=== PATIENT | male | born 1955 | race Caucasian/White ===

== ENCOUNTER 2024-04-01 20:44 | Emergency (ER) | payer MEDICARE, OTHER, SELFPAY ==
[2024-04-01 20:53] VITALS: BP 158/80; PULSE 77; RESP 18; TEMP 36.1; O2SAT 99; BMI 27.2
--- NOTE | 2024-04-01 21:16 | CRLHL7_ITS ---
For Patients: As a result of the Cures Act, medical imaging exams and procedure reports are released immediately into your electronic medical record. You may view this report before your referring provider. If you have questions, please contact your health care provider. INDICATION: Right lower quadrant abdominal pelvic pain. History appendectomy TECHNIQUE: CT Abdomen and pelvis without i.v. contrast. Coronal and sagittal reformats were obtained. COMPARISON: None FINDINGS: Lower chest: Unremarkable. Liver: Unremarkable. Spleen: Unremarkable. Pancreas: Unremarkable. Gallbladder: Unremarkable. Kidney: There is a 1 mm stone at the right ureterovesicular junction (UVJ) causing mild right hydroureter and perinephric edema. Adrenal: Unremarkable. Bowel: The sigmoid colon is collapsed and difficult to evaluate but there is severe diverticulosis of the sigmoid colon is present with suspected wall thickening. Previous appendectomy noted with no significant appendiceal stump identified. Vascular: Unremarkable. Lymph: Unremarkable. Peritoneum: Unremarkable. No pneumoperitoneum is seen. No significant ascites is noted. Pelvis: Unremarkable. Soft tissue: Unremarkable. Bone: Unremarkable for age. IMPRESSIONS: 1. There is a 1 mm stone at the right ureterovesicular junction (UVJ) causing mild right hydroureter and perinephric edema. 2. The sigmoid colon is collapsed and difficult to evaluate but there is severe diverticulosis of the sigmoid colon is present with suspected wall thickening. Findings may be due to acute diverticulitis and correlation with any recent colonoscopy or barium enema results are recommended to exclude any neoplastic etiology. Dictated by Steve Joyner MD @ 04/01/2024 10:29:44 PM Please note that all CT scans at this facility use dose modulation, iterative reconstruction, and/or weight-based dosing when appropriate to reduce radiation dose to as low as reasonably achievable. Dictated by: Steve Joyner MD @ 04/01/2024 22:29:48 (Electronically Signed)
--- NOTE | 2024-04-01 21:17 | ED.ABDPAIN ---
HPI - Abdominal Pain General Chief Complaint: Abdominal Pain Stated Complaint: Lower R abdomen pain 2 hrs, nausea Time Seen by Provider: 04/01/24 21:10 History of Present Illness HPI narrative: This 68-year-old male comes in with abdominal pain in the right lower quadrant that began about occur 2 hours prior to arrival. He states that the pain is severe and has associated nausea and vomiting. He has had his appendix removed. He does not have any personal history of kidney stone and does not know of any family history of the same. Related Data Home Medications ?Medication ?Instructions ?Recorded ?Confirmed atorvastatin 40 mg tablet 40 mg PO DAILY 04/01/24 04/01/24 latanoprost 0.005 % eye drops drp ophthalmic (eye) 04/01/24 Allergies Allergy/AdvReac Type Severity Reaction Status Date / Time No Known Drug Allergies Allergy Verified 04/01/24 20:57 Review of Systems Status of ROS Reports: 10 or more systems reviewed and unremarkable except as noted in History and below Narrative Constitutional: No fevers, no weight gain or loss. Eyes: No discharge. No vision changes. HENT: No congestion, no sore throat, no ear pain. Cardiovascular: No chest pain, no palpitations. Respiratory: No shortness of breath, no wheezes, no cough. Gastrointestinal: Right lower quadrant abdominal pain with associated nausea and vomiting. Genitourinary: No dysuria, no hematuria. Musculoskeletal: Normal range of motion. Skin: No rashes, no pruritis. Neurological: No dizziness, weakness, sensory change, speech change. Endo/Heme/Allergies: No bruising or bleeding. No polydipsia. Pysch: no suicidality, no anxiety, no insomnia. All other systems reviewed and are negative. Exam Narrative: Exam Narrative: Constitutional: Well-developed, well-nourished, no acute distress. HEENT: Normocephalic, atraumatic. Neck: Normal range of motion. Nontender. Supple. Heart: Regular. No murmurs. Normal rate. Intact distal pulses. Lungs: Clear to auscultation. No chest discomfort. No wheezes, rhonchi, or rales. Abdomen: Normal bowel sounds. Diffuse right lower quadrant tenderness. No flank pain. Genitalia: Deferred. Back: No midline tenderness. Normal range of motion. Extremities: Normal range of motion. No injury. Skin: Intact. No rash. Warm. No erythema or pallor. Neurologic: No altered sensation. No weakness. Alert and oriented. Psychiatric: No suicidality. No anxiety or depression. No insomnia. Nursing notes and vitals signs are reviewed. Const: Vital Signs, click to edit/add: Vital Signs - 24 hr 04/01/24 20:53 Temperature 97.0 F L Pulse Rate [Left P ulse Oximeter] 77 Respiratory Rate 18 Blood Pressure [Ri ght Upper Arm] 158/80 H Pulse Oximetry 99 Oxygen Delivery Me thod Room Air Course Vital Signs Vital signs: Initial Vital Signs Temperature 97.0 F L 04/01/24 20:53 Temperature Source Temporal Artery Scan 04/01/24 20:53 Pulse Rate 77 04/01/24 20:53 Pulse Rhythm Regular 04/01/24 20:53 Respiratory Rate 18 04/01/24 20:53 Blood Pressure 158/80 H 04/01/24 20:53 Blood Pressure Mean 106 H 04/01/24 20:53 Blood Pressure Position Sitting 04/01/24 20:53 Pulse Oximetry 99 04/01/24 20:53 Oxygen Delivery Method Room Air 04/01/24 20:53 Vital Signs Temperature 97.0 F L 04/01/24 20:53 Pulse Rate 77 04/01/24 20:53 Respiratory Rate 18 04/01/24 20:53 Blood Pressure 158/80 H 04/01/24 20:53 Pulse Oximetry 99 04/01/24 20:53 Oxygen Delivery Method Room Air 04/01/24 20:53 Temperature 97.0 F L 04/01/24 20:53 Pulse Rate 77 04/01/24 20:53 Respiratory Rate 18 04/01/24 20:53 Blood Pressure 158/80 H 04/01/24 20:53 Pulse Oximetry 99 04/01/24 20:53 Oxygen Delivery Method Room Air 04/01/24 20:53 Medications Administered Medications: Discontinued Medications Generic Name Dose Route Start Last Admin Trade Name Freq PRN Reason Stop Dose Admin Hydromorphone HCl 0.5 mg 04/01/24 21:16 04/01/24 21:42 Hydromorphone 0.5 Mg/0.5 Ml Inj IVP 04/01/24 21:17 0.5 mg ONCE ONE Administration Ketorolac Tromethamine 30 mg 04/01/24 21:16 04/01/24 21:42 Ketorolac 30 Mg/Ml Inj IVP 04/01/24 21:17 30 mg ONCE ONE Administration Ondansetron HCl 4 mg 04/01/24 21:16 04/01/24 21:42 Ondansetron 2 Mg/Ml Inj IVP 04/01/24 21:17 4 mg ONCE ONE Administration MDM - Abdominal Pain MDM Narrative Medical decision making narrative: This patient comes in with severe right lower quadrant abdominal pain with nausea and vomiting. His symptoms are suspicious for kidney stone however he has never had [address] scan of the abdomen and pelvis is obtained and does show evidence of a 1 mm stone at the right ureterovesical junction. The patient did receive an IV and doses of Toradol 30 mg, Dilaudid 0.5 mg, and Zofran 4 mg. This brought great relief to his symptoms. His discomfort return toward the end of his visit and did receive another 0.5 mg of Dilaudid. Instymed prescriptions for Toradol and [place] are provided. I did give him information regarding kidney stones. Imaging Data CT scan - abdomen: Radiologist's impression: 1. There is a 1 mm stone at the right ureterovesicular junction (UVJ) causing mild right hydroureter and perinephric edema. 2. The sigmoid colon is collapsed and difficult to evaluate but there is severe diverticulosis of the sigmoid colon is present with suspected wall thickening. Findings may be due to acute diverticulitis and correlation with any recent colonoscopy or barium enema results are recommended to exclude any neoplastic etiology. Discharge Plan Discharge Clinical Impression: Calculus, ureteral Patient Disposition: Home w/ Parent or Adult Condition: Improved Additional Instructions: Take medications as needed and directed. Follow up with MD or return if worsening. Prescriptions: No Action latanoprost 0.005 % drops ophthalmic (eye) atorvastatin 40 mg tablet 40 mg PO DAILY Follow Up/Referrals: Eliot Baig MD [Primary Care Provider] - Stand Alone Forms: [employer] Info Instructions
[2024-04-01] MEDS: HYDROmorphone 0.5 mg/0.5 ml inj IVP ×2 (21:42→22:46)
[2024-04-01] MEDS: ONDANSETRON 2 MG/ML inj 4 MG IVP (21:42)
[2024-04-01] MEDS: KETOROLAC 30 MG/ML inj IVP (21:42)
[2024-04-01 22:00] VITALS: BP 152/88; PULSE 88; RESP 18; O2SAT 100
[2024-04-01 22:30] VITALS: BP 156/99; PULSE 86; RESP 18; O2SAT 100
[2024-04-01 22:56] LABS: Appearance Urine Clear (Clear); Bilirubin Urine Negative (Negative); Blood Urine 2+ (Negative); Color Urine Yellow (Yellow); Glucose Urine 2+ (Negative); Ketones Urine 4+ (Negative); Leukocyte Esterase Urine Negative (Negative); Nitrite Urine Negative (Negative); Protein Urine Negative (Negative); Specific Gravity Urine 1.025 (1.000-1.030); Urobilinogen Urine 0.2 (0.2-1.0); pH Urine 5.5 (5.0-8.5)
[2024-04-01 23:00] VITALS: PULSE 93; O2SAT 97
[2024-04-01 23:17] VITALS: PULSE 86; O2SAT 97
== END 2024-04-01 23:25 | disposition home or self-care (01) ==
PROVIDERS: Emergency Provider Emergency Medicine Emergency Medical Services; PCP Family Medicine
DX: N20.1 Calculus of ureter (principal)
CPT/HCPCS: 74176; 81001; 96374; 96375; 99283; 99284; J1170; J1885; J2405